=== PATIENT | female | born 1940 | race Two or more races ===

== ENCOUNTER 2021-03-22 10:53 | Inpatient (IN) | payer MEDICARE, MEDICAID ==
[~2021-03-22] VITALS: Ht 170.2 cm; Wt 90.9 kg
[~2021-03-22 10:53] MED LIST: ASPI-556 PO; ATOR40TA28 PO; BACTDSB PO; BRINOS OU; CALC-916 PO; CARV12 PO; CEPH500C3 PO; CHOL100018 PO; CYAN1TAB44 PO; FLUT16H NASAL; FOLI-130 PO; INSLAN SQ; INSNOV SQ; LEVO50 PO; LISI-894 PO; LORA10TA7 PO; METF-445 PO; MULT-1203 PO; OMEG300C3 PO; PANT-31 PO; TIMO.25OS OU; [UNRECOGNIZED DRUG - CODE] TP
[2021-03-22 12:30] LABS: BASOPHILS % (AUTO) 0.7 % (0.0-2.0); HEMATOCRIT 34.1 % (36-46); HEMOGLOBIN 11.6 g/dL (12.0-16.0); LYMPHOCYTES # (AUTO) 1.2 K/uL (1.0-4.8); LYMPHOCYTES % (AUTO) 17.6 % (22.0-44.0); MEAN CORPUSCULAR HEMOGLOBIN 29.9 pg (26.0-34.0); MEAN CORPUSCULAR VOLUME 88 fL (80-100); MONOCYTES # (AUTO) 0.8 K/uL (0.1-1.0); MONOCYTES % (AUTO) 11.5 % (2.0-9.0); NEUTROPHILS # (AUTO) 4.7 K/uL (1.8-7.7); NEUTROPHILS % (AUTO) 69.2 % (40.0-70.0); PLATELET COUNT (AUTO) 232 K/uL (150-450); RED BLOOD CELL COUNT(AUTO) 3.88 MIL/uL (4.00-5.20); RED CELL DISTRIBUTION WIDTH 12.6 % (11.5-14.5)
[2021-03-22 12:43] LABS: ANION GAP 11 mmol/L (8-16); CALCIUM, TOTAL 8.7 mg/dL (8.8-10.5); CARBON DIOXIDE 24 mmol/L (22-29); CHLORIDE 96 mmol/L (98-107); CREATININE 0.71 mg/dL (0.60-1.30); GLOMERULAR FILTR. RATE CALC > 60 mL/min (>60); GLUCOSE,RANDOM 124 mg/dL (70-110); INR 1.1 (0.9-1.1); POTASSIUM 4.2 mmol/L (3.5-5.1); PROTHROMBIN TIME 11.4 SEC (9.4-11.6); SODIUM SERUM 131 mmol/L (136-145); UREA NITROGEN, BLOOD 19 mg/dL (7-18)
[2021-03-22 12:53] LABS: B-TYPE NATRIURETIC PEPTIDE 44 pg/mL (0-100)
[2021-03-22 13:07] LABS: ALANINE AMINOTRANSFERASE 25 U/L (12-78); ALBUMIN 3.4 g/dL (3.4-5.0); ALKALINE PHOSPHATASE 74 U/L (46-116); ASPARTATE AMINOTRANSFERASE 25 U/L (15-37); BILIRUBIN,TOTAL 0.4 mg/dL (0.1-1.0); CREATINE KINASE, TOTAL ONLY 98 U/L (26-192)
[2021-03-22] MEDS ORDERED: SODIUM CHLORIDE 0.9% 1,000 ML IV ONE (14:15)
[2021-03-22 14:19] LABS: APPEARANCE,URINE CLEAR (CLEAR); BILIRUBIN,URINE NEGATIVE (NEGATIVE); GLUCOSE, URINE (UA) NEGATIVE (NEGATIVE); KETONES,URINE NEGATIVE (NEGATIVE); LEUKOCYTE ESTERASE ,URINE NEGATIVE (NEGATIVE); NITRATE,URINE NEGATIVE (NEGATIVE); OCCULT BLOOD,URINE NEGATIVE (NEGATIVE); PH,URINE 5.5 (5.0-8.0); PROTEIN,URINE SEE CONFIRM (NEGATIVE); UROBILINOGEN,URINE 0.2 mg/dL (<=1.0)
[2021-03-22 14:25] LABS: SULFOSALICYLIC ACID,URINE 1+ (Negative)
[2021-03-22 14:26] LABS: BACTERIA,URINE None Seen /HPF (None Seen); RBC,URINE None Seen /HPF (0-2); SQUAMOUS EPITHELIAL CELL,UR Few /LPF (None Seen); WBC,URINE 0-2 /HPF (0-5)
[2021-03-22] MEDS ORDERED: HydrALAZINE HCL 20 MG/ML VIAL IVP PRN (15:00)
[2021-03-22] MEDS ORDERED: ONDANSETRON HCL 4 MG/2 ML VIAL IVP PRN (15:15)
[2021-03-22] MEDS ORDERED: IPRATROPIUM BROMIDE 0.5 MG/2.5 ML NEB SOLUTION NEB PRN (15:15)
[2021-03-22] MEDS ORDERED: ACETAMINOPHEN 325 MG TABLET PO PRN (15:15)
[2021-03-22] MEDS ORDERED: DEXTROSE 50%-WATER 25 GM/50 ML SYRINGE IVP PRN (15:15)
[2021-03-22] MEDS ORDERED: DOCUSATE SODIUM 100 MG CAPSULE PO PRN (15:15)
[2021-03-22] MEDS ORDERED: BISACODYL 10 MG RECTAL RECTAL SUPPOSITORY PR PRN (15:15)
[2021-03-22] MEDS ORDERED: MAGNESIUM HYDROXIDE SUSPENSION 30 ML UDCUP PO PRN (15:15)
[2021-03-22] MEDS ORDERED: 0.9% SODIUM CHLORIDE 10 ML SYRINGE IVP PRN (15:15)
[2021-03-22] MEDS ORDERED: ALBUTEROL SULFATE 2.5 MG/0.5 ML NEB SOLUTION NEB PRN (15:15)
[2021-03-22] MEDS ORDERED: ASPI-1444 PO (15:19)
[2021-03-22] MEDS ORDERED: OMEG-136 PO (15:19)
[2021-03-22] MEDS ORDERED: CHOL100044 PO (15:19)
[2021-03-22] MEDS ORDERED: XALA2.5OS OU (15:40)
[2021-03-22 17:50] LABS: COVID AG,FIA SOURCE NASOPHARYNGEAL
[2021-03-22] MEDS: INSULIN LISPRO 100 UNITS/ML SQ PRN (19:13)
[2021-03-22 19:20] LABS: GLUCOSE,POINT OF CARE 200 MG/DL (70-110)
[2021-03-22 20:34] VITALS: BP 147/71
[2021-03-22] MEDS: BRINZOLAMIDE 1% 10 ML OPHTHALMIC SUSPENSION OU SCH (20:54)
[2021-03-22] MEDS: TIMOLOL MALEATE 0.25% 5 ML OPHTHALMIC SOLUTION OU SCH (20:54)
[2021-03-22] MEDS: ATORVASTATIN CALCIUM 40 MG TABLET PO SCH (20:54)
[2021-03-22] MEDS: FLUTICASONE PROPIONATE 50 MCG/SPRAY 16 GM NASAL SPRAY NASAL SCH (20:54)
[2021-03-22] MEDS ORDERED: BACITRACIN 28 GM OINTMENT TP SCH (21:00)
[2021-03-23] MEDS: MULTIVITAMINS, THERAPEUTIC TABLET PO SCH (05:59)
[2021-03-23] MEDS: LEVOTHYROXINE SODIUM 50 MCG TABLET PO SCH (05:59)
[2021-03-23 06:08] LABS: HEMOGLOBIN A1C 6.6 % (3.8-5.6)
[2021-03-23 06:10] LABS: BASOPHILS % (AUTO) 0.6 % (0.0-2.0); EOSINOPHILS % (AUTO) 2.8 % (1.0-6.0); HEMATOCRIT 36.6 % (36-46); HEMOGLOBIN 12.3 g/dL (12.0-16.0); LYMPHOCYTES # (AUTO) 2.1 K/uL (1.0-4.8); LYMPHOCYTES % (AUTO) 28.7 % (22.0-44.0); MEAN CORPUSCULAR HEMOGLOBIN 29.7 pg (26.0-34.0); MEAN CORPUSCULAR HGB CONC 33.7 G/dL (31.0-37.0); MEAN CORPUSCULAR VOLUME 88 fL (80-100); MONOCYTES # (AUTO) 1.1 K/uL (0.1-1.0); MONOCYTES % (AUTO) 14.7 % (2.0-9.0); NEUTROPHILS # (AUTO) 3.9 K/uL (1.8-7.7); NEUTROPHILS % (AUTO) 53.2 % (40.0-70.0); PLATELET COUNT (AUTO) 256 K/uL (150-450); RED BLOOD CELL COUNT(AUTO) 4.16 MIL/uL (4.00-5.20); RED CELL DISTRIBUTION WIDTH 12.4 % (11.5-14.5)
[2021-03-23 07:06] LABS: ALANINE AMINOTRANSFERASE 26 U/L (12-78); ALBUMIN 3.4 g/dL (3.4-5.0); ALKALINE PHOSPHATASE 74 U/L (46-116); ANION GAP 7 mmol/L (8-16); ASPARTATE AMINOTRANSFERASE 27 U/L (15-37); BILIRUBIN,TOTAL 0.3 mg/dL (0.1-1.0); CALCIUM, TOTAL 8.8 mg/dL (8.8-10.5); CARBON DIOXIDE 27 mmol/L (22-29); CHLORIDE 100 mmol/L (98-107); CHOL/HDL RATIO 1.9 (3.9-5.7); CHOLESTEROL 117 mg/dL (131-200); CREATININE 0.89 mg/dL (0.60-1.30); FREE T4 (FREE THYROXINE) 1.12 ng/dL (0.76-1.46); GLOMERULAR FILTR. RATE CALC > 60 mL/min (>60); GLUCOSE,RANDOM 99 mg/dL (70-110); HDL CHOLESTEROL 61 mg/dL (40-60); LDL CHOL (CALC.) 40 mg/dL (0-130); POTASSIUM 4.2 mmol/L (3.5-5.1); SODIUM SERUM 134 mmol/L (136-145); THYROID STIMULATING HORMONE 2.97 uIU/mL (0.36-3.74); TOTAL PROTEIN, SERUM 6.9 g/dL (6.4-8.2); TRIGLYCERIDES 80 mg/dL (15-150); UREA NITROGEN, BLOOD 18 mg/dL (7-18)
[2021-03-23 07:40] VITALS: BP 143/82
[2021-03-23] MEDS: BRINZOLAMIDE 1% 10 ML OPHTHALMIC SUSPENSION OU SCH ×2 (07:55→20:31)
[2021-03-23] MEDS: FLUTICASONE PROPIONATE 50 MCG/SPRAY 16 GM NASAL SPRAY NASAL SCH ×2 (07:56→20:31)
[2021-03-23] MEDS: TIMOLOL MALEATE 0.25% 5 ML OPHTHALMIC SOLUTION OU SCH ×2 (07:56→20:31)
[2021-03-23] MEDS: PANTOPRAZOLE SODIUM 40 MG DR TABLET PO SCH (07:57)
[2021-03-23] MEDS: ASPIRIN 81 MG DR TABLET PO SCH (07:58)
[2021-03-23] MEDS: FOLIC ACID 1 MG TABLET PO SCH (07:58)
[2021-03-23] MEDS: CHOLECALCIFEROL (VIT D3) 1,000 UNITS [25 MCG] TABLET PO SCH (07:58)
[2021-03-23] MEDS: CALCIUM CARBONATE 648 MG TABLET PO SCH (07:58)
[2021-03-23] MEDS: OMEGA-3/DHA/EPA/FISH OIL 500 MG CAPSULE PO SCH (07:58)
[2021-03-23] MEDS: LISINOPRIL 20 MG TABLET PO SCH (07:58)
[2021-03-23] MEDS ORDERED: LORATADINE 10 MG TABLET PO PRN (09:00)
[2021-03-23 11:11] VITALS: BP 157/70
[2021-03-23] MEDS: INSULIN LISPRO 100 UNITS/ML SQ PRN ×2 (11:45→20:32)
[2021-03-23 15:53] VITALS: BP 158/70
[2021-03-23 17:20] LABS: GLUCOMETER DEV NAME(LOC) 5S.2B; GLUCOSE,POINT OF CARE 165 MG/DL (70-110)
[2021-03-23 17:20] LABS: GLUCOMETER DEV NAME(LOC) 5S.2B; GLUCOSE,POINT OF CARE 98 MG/DL (70-110)
[2021-03-23 17:52] LABS: GLUCOMETER DEV NAME(LOC) 5S.2B; GLUCOSE,POINT OF CARE 125 MG/DL (70-110)
[2021-03-23 19:51] VITALS: BP 151/54
[2021-03-23] MEDS: ATORVASTATIN CALCIUM 40 MG TABLET PO SCH (20:30)
[2021-03-24] VITALS (7 sets, daily range): BP systolic 112–147; BP diastolic 44–70
[2021-03-24 05:54] LABS: GLUCOMETER DEV NAME(LOC) 5N.3; GLUCOSE,POINT OF CARE 155 MG/DL (70-110)
[2021-03-24 06:02] LABS: BASOPHILS % (AUTO) 0.7 % (0.0-2.0); EOSINOPHILS % (AUTO) 3.7 % (1.0-6.0); HEMOGLOBIN 11.3 g/dL (12.0-16.0); LYMPHOCYTES # (AUTO) 2.2 K/uL (1.0-4.8); LYMPHOCYTES % (AUTO) 27.1 % (22.0-44.0); MEAN CORPUSCULAR HEMOGLOBIN 30.5 pg (26.0-34.0); MEAN CORPUSCULAR HGB CONC 34.4 G/dL (31.0-37.0); MEAN CORPUSCULAR VOLUME 89 fL (80-100); MONOCYTES # (AUTO) 1.3 K/uL (0.1-1.0); MONOCYTES % (AUTO) 16.9 % (2.0-9.0); NEUTROPHILS # (AUTO) 4.1 K/uL (1.8-7.7); NEUTROPHILS % (AUTO) 51.6 % (40.0-70.0); PLATELET COUNT (AUTO) 227 K/uL (150-450); RED BLOOD CELL COUNT(AUTO) 3.72 MIL/uL (4.00-5.20); RED CELL DISTRIBUTION WIDTH 12.6 % (11.5-14.5)
[2021-03-24] MEDS: LEVOTHYROXINE SODIUM 50 MCG TABLET PO SCH (06:21)
[2021-03-24] MEDS: MULTIVITAMINS, THERAPEUTIC TABLET PO SCH (06:21)
[2021-03-24 06:30] LABS: ALANINE AMINOTRANSFERASE 24 U/L (12-78); ALBUMIN 2.9 g/dL (3.4-5.0); ALKALINE PHOSPHATASE 70 U/L (46-116); ANION GAP 6 mmol/L (8-16); ASPARTATE AMINOTRANSFERASE 24 U/L (15-37); BILIRUBIN,TOTAL 0.3 mg/dL (0.1-1.0); CALCIUM, TOTAL 8.3 mg/dL (8.8-10.5); CARBON DIOXIDE 26 mmol/L (22-29); CHLORIDE 97 mmol/L (98-107); CREATININE 0.85 mg/dL (0.60-1.30); GLUCOSE,RANDOM 115 mg/dL (70-110); POTASSIUM 4.1 mmol/L (3.5-5.1); SODIUM SERUM 129 mmol/L (136-145); TOTAL PROTEIN, SERUM 6.4 g/dL (6.4-8.2); UREA NITROGEN, BLOOD 29 mg/dL (7-18)
[2021-03-24 06:38] LABS: GLOMERULAR FILTR. RATE CALC > 60 mL/min (>60)
[2021-03-24] MEDS: CALCIUM CARBONATE 648 MG TABLET PO SCH (08:26)
[2021-03-24] MEDS: FOLIC ACID 1 MG TABLET PO SCH (08:26)
[2021-03-24] MEDS: LISINOPRIL 20 MG TABLET PO SCH (08:27)
[2021-03-24] MEDS: ASPIRIN 81 MG DR TABLET PO SCH (08:27)
[2021-03-24] MEDS: PANTOPRAZOLE SODIUM 40 MG DR TABLET PO SCH (08:27)
[2021-03-24] MEDS: CHOLECALCIFEROL (VIT D3) 1,000 UNITS [25 MCG] TABLET PO SCH (08:27)
[2021-03-24] MEDS: TIMOLOL MALEATE 0.25% 5 ML OPHTHALMIC SOLUTION OU SCH (08:30)
[2021-03-24] MEDS: BRINZOLAMIDE 1% 10 ML OPHTHALMIC SUSPENSION OU SCH (08:30)
[2021-03-24] MEDS: FLUTICASONE PROPIONATE 50 MCG/SPRAY 16 GM NASAL SPRAY NASAL SCH (08:30)
[2021-03-24] MEDS: OMEGA-3/DHA/EPA/FISH OIL 500 MG CAPSULE PO SCH (10:34)
[2021-03-24] MEDS: INSULIN LISPRO 100 UNITS/ML SQ PRN (12:43)
[2021-03-24 14:41] LABS: GLUCOMETER DEV NAME(LOC) 5S.2B; GLUCOSE,POINT OF CARE 118 MG/DL (70-110)
[2021-03-24 14:41] LABS: GLUCOMETER DEV NAME(LOC) 5S.2B; GLUCOSE,POINT OF CARE 150 MG/DL (70-110)
== END 2021-03-24 15:45 | disposition home or self-care (01) | DRG 312 ==
LOC: EMS 11:07 → 5S 18:37
PROVIDERS: ADMIT Internal Medicine; ATTEND Internal Medicine
DX: R55 Syncope and collapse (principal); E03.9 Hypothyroidism, unspecified; E11.9 Type 2 diabetes mellitus without complications; I11.9 Hypertensive heart disease without heart failure; H40.9 Unspecified glaucoma; K21.9 Gastro-esophageal reflux disease without esophagitis; S00.03XA Contusion of scalp, initial encounter; E78.00 Pure hypercholesterolemia, unspecified; E78.5 Hyperlipidemia, unspecified; D64.9 Anemia, unspecified; M19.90 Unspecified osteoarthritis, unspecified site; Z20.822 Contact with and (suspected) exposure to COVID-19; Z83.3 Family history of diabetes mellitus; Z79.82 Long term (current) use of aspirin; Z79.899 Other long term (current) drug therapy; Z87.891 Personal history of nicotine dependence; Y92.89 Other specified places as the place of occurrence of the external cause
CPT/HCPCS: 70450; 71045; 72125; 80053; 80061; 81001; 81002; 82550; 82962; 83036; 83880; 84145; 84439; 84443; 84484; 85025; 85610; 85730; 93005; 93306; 93880; 97162; 99285; G0378; J1815; J7030; 36415-L1; 36415-TC

== ENCOUNTER 2021-12-11 06:47 | Emergency (ER) | payer MEDICARE, MEDICAID ==
[~2021-12-11] VITALS: Ht 160 cm; Wt 86.4 kg
[~2021-12-11 06:47] MED LIST changes: +ASPI-1444 PO; -ASPI-556 PO; -BACTDSB PO; -BRINOS OU; -CARV12 PO; -CEPH500C3 PO; +CHOL-35 PO; -CHOL100018 PO; -INSLAN SQ; -INSNOV SQ; +OMEG-136 PO; -OMEG300C3 PO; +XALA2.5OS OU; -[UNRECOGNIZED DRUG - CODE] TP
[2021-12-11 07:47] LABS: GLUCOSE,POINT OF CARE 107 MG/DL (70-110)
[2021-12-11 08:22] LABS: BASOPHILS % (AUTO) 1.3 % (0.0-2.0); HEMATOCRIT 35.1 % (36-46); HEMOGLOBIN 11.9 g/dL (12.0-16.0); LYMPHOCYTES # (AUTO) 1.5 K/uL (1.0-4.8); LYMPHOCYTES % (AUTO) 21.2 % (22.0-44.0); MEAN CORPUSCULAR VOLUME 88 fL (80-100); MONOCYTES # (AUTO) 0.7 K/uL (0.1-1.0); MONOCYTES % (AUTO) 9.4 % (2.0-9.0); NEUTROPHILS # (AUTO) 4.6 K/uL (1.8-7.7); NEUTROPHILS % (AUTO) 64.1 % (40.0-70.0); PLATELET COUNT (AUTO) 273 K/uL (150-450); RED BLOOD CELL COUNT(AUTO) 3.98 MIL/uL (4.00-5.20); RED CELL DISTRIBUTION WIDTH 12.8 % (11.5-14.5)
[2021-12-11 08:30] LABS: ANION GAP 8 mmol/L (8-16); CALCIUM, TOTAL 8.8 mg/dL (8.8-10.5); CARBON DIOXIDE 25 mmol/L (22-29); CHLORIDE 100 mmol/L (98-107); CREATININE 0.72 mg/dL (0.60-1.30); GLOMERULAR FILTR. RATE CALC > 60 mL/min (>60); GLUCOSE,RANDOM 115 mg/dL (70-110); POTASSIUM 4.5 mmol/L (3.5-5.1); SODIUM SERUM 133 mmol/L (136-145); UREA NITROGEN, BLOOD 20 mg/dL (7-18)
[2021-12-11 08:35] LABS: ALANINE AMINOTRANSFERASE 19 U/L (12-78); ALBUMIN 3.1 g/dL (3.4-5.0); ALKALINE PHOSPHATASE 96 U/L (46-116); ASPARTATE AMINOTRANSFERASE 21 U/L (15-37); BILIRUBIN,TOTAL 0.2 mg/dL (0.1-1.0); LIPASE 144 U/L (73-393); TOTAL PROTEIN, SERUM 7.3 g/dL (6.4-8.2)
[2021-12-11 08:43] LABS: LACTIC ACID 1.4 mmol/L (0.4-2.0)
[2021-12-11 09:12] LABS: APPEARANCE,URINE CLEAR (CLEAR); BILIRUBIN,URINE NEGATIVE (NEGATIVE); GLUCOSE, URINE (UA) NEGATIVE (NEGATIVE); KETONES,URINE NEGATIVE (NEGATIVE); LEUKOCYTE ESTERASE ,URINE NEGATIVE (NEGATIVE); NITRATE,URINE NEGATIVE (NEGATIVE); OCCULT BLOOD,URINE TRACE (NEGATIVE); PH,URINE 6.5 (5.0-8.0); PROTEIN,URINE SEE CONFIRM (NEGATIVE); UROBILINOGEN,URINE 0.2 mg/dL (<=1.0)
[2021-12-11] MEDS ORDERED: ASPIRIN 81 MG CHEWABLE TABLET PO ONE (09:15)
[2021-12-11 09:16] LABS: BACTERIA,URINE None Seen /HPF (None Seen); RBC,URINE 0-2 /HPF (0-2); SULFOSALICYLIC ACID,URINE 1+ (Negative); WBC,URINE None Seen /HPF (0-5)
[2021-12-11] MEDS ORDERED: METOPROLOL TARTRATE 5 MG/5 ML VIAL IVP ONE (11:30)
[2021-12-11] MEDS ORDERED: NITROGLYCERIN 2% (1 GM=INCH) PACKET TP ONE (11:30)
[2021-12-11] MEDS ORDERED: SODIUM CHLORIDE 0.9% 1,000 ML IV ONE (11:30)
[2021-12-11 12:46] LABS: COVID AG,FIA SOURCE NASAL SWAB
[2021-12-11 13:18] VITALS: BP 156/61
== END 2021-12-11 14:12 | disposition short-term general hospital (02) ==
LOC: EMS 06:57
DX: I21.4 Non-ST elevation (NSTEMI) myocardial infarction (principal); F10.231 Alcohol dependence with withdrawal delirium; I10 Essential (primary) hypertension; E03.9 Hypothyroidism, unspecified; E78.00 Pure hypercholesterolemia, unspecified; E11.9 Type 2 diabetes mellitus without complications; Z79.899 Other long term (current) drug therapy; Z20.822 Contact with and (suspected) exposure to COVID-19
CPT/HCPCS: 36415; 71045; 80053; 81001; 82962; 83605; 83690; 84484; 85025; 87426; 93005; 96361; 96374; 99291; J3490; 81002